=== PATIENT | female | born 2000 | race Caucasian/White ===

== ENCOUNTER 2019-03-26 13:35 | Outpatient (CLI) | payer OTHER ==
[~2019-03-26] VITALS: Ht 160 cm; Wt 87.5 kg
[~2019-03-26 13:35] MED LIST: PREN-93 PO
[2019-03-26 13:45] VITALS: BP 122/69; PULSE 97; RESP 18
[2019-03-26 13:52] VITALS: Ht 160 cm; Wt 87.5 kg
--- NOTE | 2019-03-26 17:54 | PN ---
Triage Information Date/Time Reason for visit: Weeks of Gestation 40 /Para 1 Objective Vital Signs Date Temp Pulse Resp B/P (MAP) Pulse Ox O2 O2 Flow FiO2 Time Delivery Rate 03/26/19 98.4 97 18 122/69 Room Air 13:45 (86) Assessment/Plan patient presents for bpp and efw bpp 03/29 efw 52.3% patient without complaints iol at 40.2 MILESTONE,HEATH INIGUEZ Mar 26, 2019 17:54
== END 2019-03-26 17:27 | disposition home or self-care (01) ==
LOC: OBT 13:35 → L-D 13:36 → OBT 17:27
PROVIDERS: ATTEND Specialist
DX: O48.0 Post-term pregnancy (principal); Z3A.40 40 weeks gestation of pregnancy
CPT/HCPCS: 76815; 76818; Z7500; G0463

== ENCOUNTER 2019-03-28 10:00 | Inpatient (IN) | payer OTHER ==
[~2019-03-28] VITALS: Ht 160 cm; Wt 88.2 kg
[2019-03-28 11:03] VITALS: BP 124/83; PULSE 85; RESP 17; Ht 160 cm; Wt 88.2 kg
[2019-03-28] MEDS ORDERED: METHYLERGONOVINE 0.2 MG INJ IM PRN (11:30)
[2019-03-28] MEDS ORDERED: OXYTOCIN 30 UNITS/LR 500 ML IV SCH ×2 (11:30)
[2019-03-28] MEDS ORDERED: CARBOPROST 250 MCG INJ IM PRN (11:30)
[2019-03-28] MEDS ORDERED: OXYTOCIN 30 UNITS/LR 500 ML IV PRN (11:30)
[2019-03-28] MEDS ORDERED: MISOPROSTOL 200 MCG TAB PR PRN (11:30)
[2019-03-28] MEDS ORDERED: LIDOCAINE 1% (MPF) 30 ML INJ INJ PRN (11:30)
[2019-03-28] MEDS: MISOPROSTOL 50 MCG CAPSULE PO SCH ×3 (12:29→21:38)
[2019-03-28] MEDS: LACTATED RINGER'S 1,000 ML IV SCH (19:27)
--- NOTE | 2019-03-28 20:35 | HP ---
Date/Time of Note Date/Time of Note DATE: 03/28/19 TIME: 20:33 OB - History Hx of Present Free Text/Dictation 18-year-old 1 with at 40 weeks and 2 days with due date March 26, 2019 who presents to labor and delivery for induction of labor due to postdate and JAYLA 6.2 cm. She denies vaginal bleeding or loss of fluid per vagina. She reports good movements. NST is reactive with moderate variability and accelerations. She was a started on oral Cytotec. Care: Good Care Ultrasounds: Normal mid trimester US Obstetrical Complications: None Medical Complications: None Past Family/Social History * Past Medical, Surgical, Family and Obstetric Histories reviewed from chart. OB Admission Exam Vital Signs Vital Signs Vital Signs Date Temp Pulse Resp B/P (MAP) Pulse Ox O2 O2 Flow FiO2 Time Delivery Rate 03/28/19 98.5 85 17 124/83 11:03 (97) Physical Exam HEENT: WNL Heart: Rhythm Normal Lungs: Clear, Equal Abdomen: WNL Extremities: Normal Reflexes: Normal Cervical Dilatation: None Last 72 hours Lab Results CBC & BMP 03/28/19 12:00 OB Assessment/Plan Reason for admission: induction of labor Induction Method: per Misoprostol Protocol MANSI GONSALVES MD Mar 28, 2019 20:35
[2019-03-29] MEDS: MISOPROSTOL 50 MCG CAPSULE PO SCH ×3 (04:06→09:00)
[2019-03-29] MEDS: LACTATED RINGER'S 1,000 ML IV SCH ×4 (06:10→21:16)
--- NOTE | 2019-03-29 07:26 | PREAC ---
Date/Time of Note Date/Time of Note DATE: 03/29/19 TIME: 07:26 Anesthesia Eval and Record Evaluation Time Pre-Procedure Interview DATE: 03/29/19 TIME: 07:26 Age 18 Sex female NPO: 8 hrs Preoperative diagnosis intrauterine Planned procedure labor epidural Past Medical History Past Medical History: Includes : : (1), Para: (0) Surgery & Anesthesia Issues No known issue Meds Anticoagulation: No Beta Elissa within 24 hr: No Reason Beta Elissa not given: Pt. not on B-Elissa Reported Medications Vit No.124/Iron/FA ( Vitamin Tablet) 1 Each Tablet, 1 EACH PO, TAB 03/26/19 Current Medications Lidocaine (Xylocaine 1% (Mpf)) 30 ml ONCE PRN INJ .EPISIOTOMY; Start 03/28/19 at 11:30 Oxytocin/Lactated Ringer's 500 ml @ 500 mls/hr ONCE POST IV ; Start 03/28/19 at 11:30 Oxytocin/Lactated Ringer's 500 ml @ 125 mls/hr POST IV ; Start 03/28/19 at 11:30 Oxytocin/Lactated Ringer's 500 ml @ 0 mls/hr ONCE PRN IV .VAGINAL BLEEDING; Start 03/28/19 at 11:30 Methylergonovine Maleate (Methergine) 0.2 mg ONCE PRN IM .VAGINAL BLEEDING; Start 03/28/19 at 11:30 Carboprost Tromethamine (Hemabate) 250 mcg ONCE PRN IM .VAGINAL BLEEDING; Start 03/28/19 at 11:30 Misoprostol (Cytotec) 1,000 mcg ONCE PRN GA .VAGINAL BLEEDING; Start 03/28/19 at 11:30 Misoprostol (Cytotec 50 Mcg Capsule) 50 mcg Q4 PO Last administered on 03/29/19at 04:06; Admin Dose 50 MCG; Start 03/28/19 at 13:00; Stop 03/29/19 at 09:01 Lactated Ringer's 1,000 ml @ 125 mls/hr Q8H IV Last administered on 03/29/19at 06:10; Admin Dose 125 MLS/HR; Start 03/28/19 at 12:18 Meds reviewed: Yes Allergies Coded Allergies: No Known Allergy (Unverified , 03/26/19) Allergies Reviewed: Yes Labs/Studies Labs Reviewed: Reviewed by anesthesiologist Result Diagram: 03/28/19 1200 Laboratory Tests 03/28/19 12:00 Blood Bank Test 03/28/19 13:16 Antibody Screen NEGATIVE Blood Type O POSITIVE Rh Immune Globulin Candidate NO test: N/A Pre-procedure Exam Last vitals Vital Signs Date Temp Pulse Resp B/P (MAP) Pulse Ox O2 O2 Flow FiO2 Time Delivery Rate 03/28/19 98.5 85 17 124/83 11:03 (97) Airway: Adequate mouth opening, Adequate thyromental dist Mallampati: Mallampati II Teeth: Normal Lung: Normal Heart: Normal ASA Physical Status ASA physical status: 2 Emergency: None Planned Anesthetic Neuraxial: Epidural Planned Pain Management Epidural Pre-operative Attestations Prior to commencing anesthesia and surgery, the patient was re-evaluated, there was verification of: *The patient's identity *The results of appropriate recent lab work and preoperative vital signs *The above evaluation not changing prior to induction *Anesthetic plan, risk benefits, alternative and complications discussed with patient/family; questions answered; patient/family understands, accepts and wishes to proceed. MILLIE ARREOLA MD Mar 29, 2019 07:26
[2019-03-29] MEDS ORDERED: FENTAnyl 2MCG/ML-ROPIV 0.2% 100 ML ONE (07:28)
[2019-03-29] MEDS ORDERED: NALOXONE (0.4 MG/ML) INJ IV PRN (07:30)
[2019-03-29] MEDS ORDERED: FENTAnyl 2MCG/ML-ROPIV 0.2% 100 ML BAG EPI SCH (07:30)
[2019-03-29] MEDS ORDERED: DIPHENHYDRAMINE 50 MG INJ IV PRN (07:30)
[2019-03-29] MEDS ORDERED: ONDANSETRON 4 MG INJ IV PRN ×2 (07:30→18:00)
--- NOTE | 2019-03-29 08:38 | PAC ---
Date/Time of Note Date/Time of Note DATE: 03/29/19 TIME: 08:36 Post-Anesthesia Notes Post-Anesthesia Note Last documented vital signs Vital Signs Date Temp Pulse Resp B/P (MAP) Pulse Ox O2 O2 Flow FiO2 Time Delivery Rate 03/28/19 98.5 85 17 124/83 11:03 (97) Activity: WNL Respiratory function: WNL Cardiovascular function: WNL Mental status: Baseline Pain reasonably controlled: Yes Hydration appropriate: Yes Nausea/Vomiting absent: Yes Comments BP: 118/64 HR: 82 RR: 15 T: 98 SaO2: 100% MILLIE ARREOLA MD Mar 29, 2019 08:38
--- NOTE | 2019-03-29 09:45 | QN ---
Documentation Comment NST is category 1 Cervix is 2 cm Artificial rupture of membrane done, amniotic fluid clear Start Pitocin MANSI GONSALVES MD Mar 29, 2019 09:45
[2019-03-29] MEDS ORDERED: OXYTOCIN 30 UNITS/LR 500 ML IV SCH (17:35)
--- NOTE | 2019-03-29 17:35 | LDN ---
Date/Time of Note Date/Time of Note DATE: 03/29/19 TIME: 17:33 Delivery Summary March 29, 2019 I was called to cover for delivery while the OB attending was away. Patient was feeling significant urge to push. Weeks of Gestation 40 weeks and 3 days Placenta Delivered: Spontaneously Meconium: none Episiotomy: No Indication for episiotomy N/AA Perineal laceration: 2 Laceration repair: Second-degree perineal laceration and first-degree supra urethral laceration repaired using 2-0 and 3-0 chromic Urethra was intact. Patient has Farris catheter that was draining clear yellow urine Anesthesia type: Epidural Estimated blood loss: 300 Sponge & Needle done & correct: Yes All needle counts correct: Yes Any foreign bodies felt in the: No Infant Delivery Information Sex Sex: male Apgars 1 Minute: 9 5 Minute: 9 Suctioning Nose & mouth suctioned at victoriano: Yes Delee suction performed: Yes Umbilical Cord Umbilical cord with: 3 Vessels Cord presentations: no nuchal cord Cord Blood was obtained: Yes Mother & Baby Disposition Disposition Assented delivered complete and intact. Fundus was firm after delivery of placenta. Second-degree perineal laceration and first-degree supra urethral laceration repaired using 301 2-0 chromic. Hemostasis was complete. Fundus was firm at the end of the delivery. KALLI YUN MD Mar 29, 2019 17:35
[2019-03-29] MEDS ORDERED: WITCH HAZEL/GLYCERIN PAD PR PRN (18:00)
[2019-03-29] MEDS ORDERED: ZOLPIDEM 5 MG TAB PO PRN (18:00)
[2019-03-29] MEDS ORDERED: CARBOPROST 250 MCG INJ IM PRN (18:00)
[2019-03-29] MEDS ORDERED: HYDROCODONE/APAP (5/325) TAB PO PRN (18:00)
[2019-03-29] MEDS ORDERED: ACETAMINOPHEN 325 MG TAB PO PRN (18:00)
[2019-03-29] MEDS: IBUPROFEN 600 MG TAB PO SCH (18:00)
[2019-03-29] MEDS ORDERED: OXYTOCIN 30 UNITS/LR 500 ML IV PRN (18:00)
[2019-03-29] MEDS ORDERED: NACL 0.9% 3 ML SYG IV SCH (18:00)
[2019-03-29] MEDS ORDERED: LANOLIN HPA 1 PKT TOP PRN (18:00)
[2019-03-29] MEDS ORDERED: DIPHENHYDRAMINE 25 MG CAP PO PRN (18:00)
[2019-03-29] MEDS ORDERED: MISOPROSTOL 200 MCG TAB PR PRN (18:00)
[2019-03-29 18:15] VITALS: BP 123/64; PULSE 80; RESP 18
[2019-03-29 20:00] VITALS: BP 122/59; PULSE 69; RESP 18
[2019-03-29] MEDS: SENNA/DOCUSATE NA (8.6MG/50MG) TAB PO SCH (21:13)
[2019-03-30] VITALS: BP 110/62; PULSE 82; RESP 18
[2019-03-30] MEDS: IBUPROFEN 600 MG TAB PO SCH ×5 (00:41→23:51)
[2019-03-30] MEDS: LACTATED RINGER'S 1,000 ML IV SCH ×3 (04:18→20:18)
[2019-03-30 04:25] VITALS: BP 98/55; RESP 18
[2019-03-30 08:20] VITALS: BP 100/62; PULSE 68; RESP 18
[2019-03-30] MEDS: SENNA/DOCUSATE NA (8.6MG/50MG) TAB PO SCH ×2 (11:46→21:26)
[2019-03-30 16:00] VITALS: BP_SYST 116; PULSE 71
--- NOTE | 2019-03-30 18:30 | DS ---
Date/Time of Note Date/Time of Note DATE: 03/30/19 TIME: 18:29 Obstetrical Discharge Record Final Diagnosis Final Diagnosis: Term delivered Vaginal Delivery Obstetrical Delivery: Spontaneous Complications Augmentation: Yes Induction: Yes Rupture of Membranes: No Condition on Discharge Physical Assessment Voiding: Yes Bowel Movement: Yes Breast: Soft, non-tender, Filling Fundus: Firm Abdomen and Incision: soft, not tender Calf Tenderness: No Patient Condition: Good MANSI GONSALVES MD Mar 30, 2019 18:30
[2019-03-30 20:00] VITALS: BP 116/65; PULSE 77; RESP 18
[2019-03-31 04:10] VITALS: BP 120/66; PULSE 80; RESP 18
[2019-03-31] MEDS: LACTATED RINGER'S 1,000 ML IV SCH (04:18)
[2019-03-31] MEDS: IBUPROFEN 600 MG TAB PO SCH ×2 (05:32→11:57)
[2019-03-31 08:00] VITALS: BP 113/77; PULSE 76; RESP 20
[2019-03-31] MEDS ORDERED: VARICELLA VACCINE LIVE/PF 1,350 UNIT/0.5 ML ML SC* ONE (09:00)
[2019-03-31] MEDS ORDERED: DIPHTH/TET/ACEL PERTUSS (ADULT) 0.5 ML VIAL IM* ONE (09:00)
[2019-03-31] MEDS ORDERED: MEASLES,MUMPS,RUBELLA VACCINE INJ SC* ONE (09:00)
[2019-03-31] MEDS: SENNA/DOCUSATE NA (8.6MG/50MG) TAB PO SCH (11:57)
--- NOTE | 2019-04-01 14:36 | DELSUM ---
Delivery Summary A-C Datetime Report Generated by CPN: 04/01/2019 14:36 DELIVERY PERSONNEL Ldr Rn: Duvo, Aminata MATERNAL INFORMATION Delivery Anesthesia: Epidural Medications in Delivery: LR 500ML PITOCIN 30 UNITS Delivery QBL (ml): 309 Placenta Cultured: No Maternal Complications: None LABOR SUMMARY EDC: 03/26/2019 00:00 No. Babies in Womb: 1 Attempted: No Labor Anesthesia: Epidural LABOR INFORMATION Reason for Induction: Postterm Onset of Labor: 03/29/2019 07:17 Complete Dilatation: 03/29/2019 16:27 Cervical Ripening Agents: Cytotec @ 50 Group B Beta Strep: Negative Antibiotics # of Doses: 0 Steroids Given: None Reason Steroids Not Administered: Not Applicable MEMBRANES Membranes Rupture Method: Artificial Rupture of Membranes: 03/29/2019 08:19 (Annotations: Data stored by N on behalf of user) Length of Rupture (hr): 8.37 Amniotic Fluid Color: Clear Amniotic Fluid Amount: Small Amniotic Fluid Odor: Normal STAGES OF LABOR Stage 1 hr: 9 Stage 1 min: 10 Stage 2 hr: 0 Stage 2 min: 14 Stage 3 hr: 0 Stage 3 min: 4 Total Time in Labor hr: 9 Total Time in Labor min: 28 VAGINAL DELIVERY Episiotomy: None Laceration Extension: Second Degree Laceration Type: Perineal Laceration Repair: Yes Initial Vag Sponge Count: 10 Final Vag Sponge Count: 10 Initial Vag Sharps Count: 1 Final Vag Sharps Count: 3 Sponge Count Correct: Yes; Vaginal Sweep Performed Sharps Count Correct: Yes BABY A INFORMATION Infant Delivery Date/Time: 03/29/2019 16:41 Method of Delivery: Vaginal Born in Route : No : N/A Forceps: N/A Vacuum Extraction: N/A Shoulder Dystocia : No SHOULDER DYSTOCIA BABY A Delivery Date/Time: 03/29/2019 16:41 PRESENTATION/POSITION BABY A Presentation: Cephalic Cephalic Presentation: NO Breech Presentation: N/A PLACENTA INFORMATION BABY A Placenta Delivery Time : 03/29/2019 16:45 Placenta Method of Delivery: Spontaneous Placenta Status: Delivered SCORES BABY A Heart Rate 1 min: >100 bpm Resp Effort 1 min: Good Cry Reflex Irritability 1 min: Cough/Sneeze/Pulls Away Muscle Tone 1 min: Active Motion Color 1 min: Body [place], Extremit Blue Resuscitation Effort 1 min: Tactile Stimulation SCORE 1 MIN: 9 Heart Rate 5 min: >100 bpm Resp Effort 5 min: Good Cry Reflex Irritability 5 min: Cough/Sneeze/Pulls Away Muscle Tone 5 min: Active Motion Color 5 min: Body [place], Extremit Blue SCORE 5 MIN: 9 INFANT INFORMATION BABY A Gestational Age at Delivery: 40.3 Gestational Status: Full Term- 39- 40.6 Weeks Outcome : Liveborn, with signs of life Condition : Stable Infant Sex: Male IDENTIFICATION/MEDS BABY A ID Band Number: [id number] ID Band Location: Right Leg; Left Arm Sensor Applied: Yes Sensor Number: [id number] Sensor Location : Cord Clamp Vitamin K Given : Not Given Erythromycin Given: Not Given WEIGHT/LENGTH BABY A Infant Birthweight (gm): 3205 Infant Weight (lb): 7 Weight (oz): 1 Infant Length (in): 20.50 Infant Length (cm): 52.07 CORD INFORMATION BABY A No. Cord Vessels: 3 Nuchal Cord : N/A Cord Blood Taken: Yes Banking/Donate Info: NO Infant Suction: Mouth; Nose ASSESSMENT BABY A Infant Complications: Multiple Variable Decels
== END 2019-03-31 12:35 | disposition home or self-care (01) | DRG 807 ==
LOC: L-D 10:01 → PP1 03-29 17:54
PROVIDERS: ADMIT Specialist; ATTEND Specialist
PROC: 10E0XZZ Delivery of Products of Conception, External Approach (ICD-10-PCS; principal; 2019-03-29)
PROC: 0KQM0ZZ Repair Perineum Muscle, Open Approach (ICD-10-PCS; 2019-03-29)
PROC: 0UQMXZZ Repair Vulva, External Approach (ICD-10-PCS; 2019-03-29)
PROC: 10907ZC Drainage of Amniotic Fluid, Therapeutic from Products of Conception, Via Natural or Artificial Opening (ICD-10-PCS; 2019-03-29)
DX: O48.0 Post-term pregnancy (principal); O70.1 Second degree perineal laceration during delivery; O71.82 Other specified trauma to perineum and vulva; Z37.0 Single live birth; Z3A.40 40 weeks gestation of pregnancy
CPT/HCPCS: 62322; 85025; 85610; 85730; 86592; 86706; 86850; 86900; 86901; 90716; J2405; J2590; J3010; J7120